=== PATIENT | female | born 1995 | race Caucasian/White ===

== ENCOUNTER 2018-02-22 15:50 | Emergency (ER) | payer OTHER ==
[2018-02-22] MEDS: DEXAMETHASONE 10 MG/ML 1 ML INJ PO (16:34)
[2018-02-22] MEDS: IBUPROFEN 600 MG TAB PO (16:34)
== END 2018-02-22 17:01 | disposition home or self-care (01) ==
LOC: FTE 15:50
DX: H60.92 Unspecified otitis externa, left ear (principal)
CPT/HCPCS: 99283; J1100